=== PATIENT | male | born 1945 | race American Indian/Alaskan Native ===

== ENCOUNTER 2022-01-28 07:00 | Emergency (ER) | payer MEDICARE, OTHER ==
--- NOTE | 2022-01-28 08:29 | Emergency Department Report ---
ED Shortness of Breath HPI - General Chief Complaint: Adult Asthma Stated Complaint: SOB Time Seen by Provider: 01/28/22 08:20 Source: patient Mode of arrival: Ambulatory Limitations: No Limitations - History of Present Illness Initial Comments: 76-year-old black [place] male with history of CHF who now presented with shortness of breath that started about a week and a half ago. Patient denies any chest pain or palpitation. No cough or fever reported. Patient denies any smoking or history of asthma. Patient however reported some weight gain rec ently. Patient denies any other modifying neurological factor. - Related Data Home Medications Medication Instructions Recorded Confirmed Last Taken guaiFENesin/DEXTROMETHORPHAN 2 tsp PO PRN PRN 11/22/14 11/22/14 2 Days Ago [Diabetic Tussin Dm Liquid] ~01/26/22 Previous Rx's Medication Instructions Recorded Last Taken Type Aspirin 81 mg PO QDAY #30 tablet 10/18/14 2 Days Ago Rx ~01/26/22 Furosemide [Lasix] 20 mg PO DAILY #30 tablet 10/18/14 2 Days Ago Rx ~01/26/22 carvediloL [Coreg] 3.125 mg PO BID #60 tablet 10/18/14 2 Days Ago Rx ~01/26/22 Allergies Allergy/AdvReac Type Severity Reaction Status Date / Time No Known Allergies Allergy Verified 11/22/14 06:39 ED Review of Systems ROS: Stated complaint: SOB Other details as noted in HPI Comment: All other systems reviewed and negative Respiratory: orthopnea, shortness of breath, SOB with exertion, SOB at rest ED Past Medical Hx - Past Medical History Hx Hypertension: Yes Hx CVA: No Hx Congestive Heart Failure: Yes Hx GERD: Yes - Surgical History Past Surgical History?: Yes Additional Surgical History: left leg - Social History Smoking Status: Former Smoker - Medications Home Medications: Home Medications Medication Instructions Recorded Confirmed Last Taken Type Aspirin 81 mg PO QDAY #30 tablet 10/18/14 11/22/14 2 Days Ago Rx ~01/26/22 Furosemide [Lasix] 20 mg PO DAILY #30 tablet 10/18/14 11/22/14 2 Days Ago Rx ~01/26/22 carvediloL [Coreg] 3.125 mg PO BID #60 tablet 10/18/14 11/22/14 2 Days Ago Rx ~01/26/22 guaiFENesin/DEXTROMETHORPHAN 2 tsp PO PRN PRN 11/22/14 11/22/14 2 Days Ago History [Diabetic Tussin Dm Liquid] ~01/26/22 ED Physical Exam - General Limitations: No Limitations General appearance: alert, in no apparent distress - Head Head exam: Present: normal inspection - Eye Eye exam: Present: normal appearance Pupils: Present: normal accommodation - ENT ENT exam: Present: normal exam, normal orophraynx - Neck Neck exam: Present: normal inspection - Respiratory Respiratory exam: Present: rales (Wet lungs) - Cardiovascular Cardiovascular Exam: Present: regular rate, normal rhythm, normal heart sounds - GI/Abdominal GI/Abdominal exam: Present: soft, normal bowel sounds - Extremities Exam Extremities exam: Present: pedal edema (+1 bilaterally) - Back Exam Back exam: Present: normal inspection - Neurological Exam Neurological exam: Present: alert - Psychiatric Psychiatric exam: Present: normal affect, normal mood - Skin Skin exam: Present: warm ED Course Vital Signs 01/28/22 01/28/22 01/28/22 07:55 08:29 08:39 Temperature 97.8 F Pulse Rate 63 82 82 Respiratory 18 12 16 Rate Blood Pressure 125/85 Blood Pressure 133/86 125/85 [Right] O2 Sat by Pulse 97 97 96 Oximetry 01/28/22 01/28/22 01/28/22 09:01 10:01 10:07 Temperature Pulse Rate 79 72 Respiratory 30 H 15 Rate Blood Pressure 123/84 116/72 Blood Pressure [Right] O2 Sat by Pulse 99 94 98 Oximetry - Reevaluation(s) Reevaluation #1: 01/28/22 10:36 Patient report feeling much better we will go ahead and give 20 mg of Joanna to get some fluid of lungs--and increased his Lasix with close follow-up with 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 Critical care attestation.: If time is entered above; I have spent that time in minutes in the direct care of this critically ill patient, excluding procedure time. ED Disposition Clinical Impression: Hypokalemia Dyspnea Qualifiers: Dyspnea type: shortness of breath Qualified Code(s): R06.02 - Shortness of breath; R06.00 - Dyspnea, unspecified; R06.01 - Orthopnea Acute exacerbation of CHF (congestive heart failure) Qualifiers: Heart failure type: unspecified Qualified Code(s): I50.9 - Heart failure, unspecified Disposition: 01 HOME / SELF CARE / HOMELESS Is pt being admited?: No Does the pt Need Aspirin: No Condition: Stable Instructions: Heart Failure, Self Care, [id number] Additional Instructions: Your water pill Lasix is increased to 40 mg twice daily for the next 5 days Please call your primary doctor/cardiology and follow-up in the next 3 to 5 days for progress Please do not hesitate to call or return to emergency if your symptoms worsen Referrals: PERLA DUKE MD [Primary Care Provider] - 3-5 Days Time of Disposition: 10:41 (Please discharge patient as soon as the Edward and potassium is given)
--- NOTE | 2022-01-28 08:53 | XRay Report ---
CHEST 1 VIEW 01/28/2022 8:29 AM INDICATION / CLINICAL INFORMATION: Shortness of breath. COMPARISON: 2 views of the chest from 10/16/2014. FINDINGS: SUPPORT DEVICES: None. HEART / MEDIASTINUM: The cardiac silhouette is mildly enlarged with central vascular congestion. LUNGS / PLEURA: There is probable bibasilar atelectasis with additional bilateral interstitial opacit ies, likely representing edema. No significant pleural effusion. No pneumothorax. ADDITIONAL FINDINGS: No significant additional findings. IMPRESSION: 1. Mild cardiomegaly with central vascular congestion and probable bilateral edema/atelectasis. Signer Name: Tim Rosario MD Signed: 01/28/2022 8:48 AM Workstation Name: [id number]
[2022-01-28 09:11] LABS: Albumin 3.7 g/dL (3.9-5); Basophils % (Auto) 0.9 % (0.0-1.8); Calcium 9.3 mg/dL (8.4-10.2); Eosinophils # (Auto) 0.1 K/mm3 (0.0-0.4); Eosinophils % (Auto) 2.8 % (0.0-4.3); Hematocrit 44.7 % (35.5-45.6); Hemoglobin 14.2 gm/dl (11.8-15.2); Lymphocytes # (Auto) 1.1 K/mm3 (1.2-5.4); Lymphocytes % (Auto) 24.1 % (13.4-35.0); Mean Corpuscular HGB Conc 32 % (32-34); Mean Corpuscular Volume 85 fl (84-94); Monocytes # (Auto) 0.5 K/mm3 (0.0-0.8); Monocytes % (Auto) 10.5 % (0.0-7.3); Platelet Count 162 K/mm3 (140-440); Red Blood Count 5.24 M/mm3 (3.65-5.03); Red Cell Distribution Width 16.1 % (13.2-15.2)
[2022-01-28] MEDS ORDERED: POTASSIUM CHLORIDE ER 20 MEQ TAB PO ONE (10:37)
[2022-01-28] MEDS ORDERED: FUROSEMIDE 20 MG/2 ML INJ IV ONE (10:38)
--- NOTE | 2022-01-28 10:49 | Electrocardiograph Report ---
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
[2022-01-28 11:19] VITALS: BP 120/78
== END 2022-01-28 11:38 | disposition home or self-care (01) ==
LOC: ED 07:00
DX: E87.6 Hypokalemia (principal); R06.02 Shortness of breath; F17.200 Nicotine dependence, unspecified, uncomplicated
CPT/HCPCS: 36415; 71045; 80053; 83880; 84484; 85025; 93005; 96374; 99284; J1940